=== PATIENT | female | born 1995 | race American Indian/Alaskan Native ===

== ENCOUNTER 2017-03-22 20:13 | Emergency (ER) | payer SELFPAY ==
[2017-03-22 20:54] LABS: Eosinophils % (Auto) 4.2 % (0.0-4.3); Hematocrit 35.5 % (30.3-42.9); Hemoglobin 11.5 gm/dl (10.1-14.3); Mean Corpuscular HGB Conc 33 % (30-34); Mean Corpuscular Hemoglobin 26 pg (28-32); Mean Corpuscular Volume 80 fl (79-97); Platelet Count 385 K/mm3 (140-440); Red Blood Count 4.43 M/mm3 (3.65-5.03); Red Cell Distribution Width 17.1 % (13.2-15.2); White Blood Count 8.6 K/mm3 (4.5-11.0)
[2017-03-22 21:04] LABS: Anion Gap 16 mmol/L; Blood Urea Nitrogen 8 mg/dL (7-17); Calcium 9.3 mg/dL (8.4-10.2); Carbon Dioxide 26 mmol/L (22-30); Chloride 100.4 mmol/L (98-107); Glucose 85 mg/dL (65-100); Potassium 3.6 mmol/L (3.6-5.0); Sodium 139 mmol/L (137-145)
--- NOTE | 2017-03-22 21:32 | XRay Report ---
FINAL REPORT EXAM: XR CHEST ROUTINE 2V HISTORY: SOB, Headache, HTN, preg test pend,send for report TECHNIQUE: Two view chest PA and lateral PRIORS: None. FINDINGS: Cardiac and mediastinal contours are unremarkable. No focal pulmonary infiltrate is identified. No pleural fluid collection seen. Pulmonary vasculature is unremarkable. IMPRESSION: Negative two-view chest
--- NOTE | 2017-03-22 22:03 | Cat Scan Report ---
FINAL REPORT EXAM: CT HEAD/BRAIN WO CON HISTORY: HTN, Nausea, SOB, Headache, preg test pending TECHNIQUE: CT imaging acquired through the head without intravenous contrast. Transaxial reformations are provided. PRIORS: None. FINDINGS: The ventricles, cisterns and sulci are normal. No intraparenchymal or extra-axial mass, hemorrhage, or mass effect. Olivares and white-matter differentiation is normal. Normal spherical shape of the globes. No significant abnormality within the imaged paranasal sinuses or mastoid air cells. No skull fracture. IMPRESSION: No acute intracranial abnormality.
[2017-03-22] MEDS ORDERED: NORVASC PO ONE (22:25)
--- NOTE | 2017-03-22 22:28 | Emergency Department Report ---
ED General Adult HPI - General Chief complaint: High BP Stated complaint: HIGH B/P Time Seen by Provider: 03/22/17 22:12 Source: patient Mode of arrival: Ambulatory Limitations: No Limitations - History of Present Illness Initial comments: Pt is a 21 yr old female with history of migraines who presents with intermittent LACY's and HTN. Pt reports for the past week she has had frontal and sinus headaches and when she checked her BP at school today it was >160. Pt reports she went home and took a nap and when she awoke she checked her BP again and SBP was 175. Pt reports she likely has high BP. Pt has a strong family history of HTN. Pt reports her 31 yr old sister has been on anti-HTN meds for years and may have had a stroke. Currently she reports her LACY has resolved. Otherwise no other complaints. No fevers, chills, dizziness, vision changes, vomiting, SOB, CP, abd pain, travel, or sick contacts. Severity scale (0 -10): 3 - Related Data Previous Rx's Medication Instructions Recorded Last Taken Type Ibuprofen [Motrin 600 MG tab] 600 mg PO Q8H PRN #30 tablet 01/26/15 Unknown Rx Butalbit/Acetamin/Caff/Codeine 1 cap PO Q6HR PRN #15 cap 08/28/15 Unknown Rx [Fioricet/Codeine 77-500-17-30] Ibuprofen [Motrin 800 MG tab] 800 mg PO Q8HR PRN #30 tablet 08/28/15 Unknown Rx metroNIDAZOLE [Flagyl TAB] 500 mg PO Q12HR #14 tab 08/28/15 Unknown Rx amLODIPine [Norvasc] 5 mg PO DAILY #30 tab 03/22/17 Unknown Rx Allergies Allergy/AdvReac Type Severity Reaction Status Date / Time No Known Allergies Allergy Unverified 01/26/15 12:11 ED Review of Systems ROS: Stated complaint: HIGH B/P Other details as noted in HPI Comment: All other systems reviewed and negative ED Past Medical Hx - Past Medical History Previous Medical History?: Yes Hx Headaches / Migraines: Yes - Surgical History Past Surgical History?: No - Social History Smoking Status: Current Every Day Smoker Substance Use Type: None - Medications Home Medications: Home Medications Medication Instructions Recorded Confirmed Last Taken Type Ibuprofen [Motrin 600 MG tab] 600 mg PO Q8H PRN #30 tablet 01/26/15 Unknown Rx Butalbit/Acetamin/Caff/Codeine 1 cap PO Q6HR PRN #15 cap 08/28/15 Unknown Rx [Fioricet/Codeine 13-590-52-30] Ibuprofen [Motrin 800 MG tab] 800 mg PO Q8HR PRN #30 tablet 08/28/15 Unknown Rx metroNIDAZOLE [Flagyl TAB] 500 mg PO Q12HR #14 tab 08/28/15 Unknown Rx amLODIPine [Norvasc] 5 mg PO DAILY #30 tab 03/22/17 Unknown Rx ED Physical Exam - General Limitations: No Limitations General appearance: alert, in no apparent distress - Head Head exam: Present: atraumatic, normocephalic - Eye Eye exam: Present: normal appearance, PERRL, EOMI Pupils: Present: normal accommodation - ENT ENT exam: Present: mucous membranes moist - Neck Neck exam: Present: normal inspection - Respiratory Respiratory exam: Present: normal lung sounds bilaterally. Absent: respiratory distress - Cardiovascular Cardiovascular Exam: Present: regular rate, normal rhythm. Absent: systolic murmur, diastolic murmur, rubs, gallop - GI/Abdominal GI/Abdominal exam: Present: soft, normal bowel sounds - Extremities Exam Extremities exam: Present: normal inspection - Back Exam Back exam: Present: normal inspection - Neurological Exam Neurological exam: Present: alert, oriented X3 - Psychiatric Psychiatric exam: Present: normal affect, normal mood - Skin Skin exam: Present: warm, dry, intact, normal color. Absent: rash ED Course Vital Signs 03/22/17 03/22/17 03/22/17 20:28 22:40 22:58 Temperature 98.7 F 98.7 F Pulse Rate 87 68 74 Respiratory 16 19 Rate Blood Pressure 144/90 Blood Pressure 160/109 138/87 [Right] O2 Sat by Pulse 100 100 Oximetry ED Medical Decision Making - Lab Data Result diagrams: 03/22/17 20:34 03/22/17 20:34 - EKG Data -: EKG Interpreted by Me - EKG Data 03/22/17 22:26 2025 EKG: NSR at 66 bpm, QTc:381 ns, normal axis no LVH, no ST changes, no STEMI - Medical Decision Making I discussed with the patient, given her strong family history and her BP readings at home she likely has essential HTN. I will give her norvasc 5mg here in the ED and give her a Rx for Norvasc 5mg daily, and she understands she needs to follow up with a primary provider for further evaluation and management of her BP. Critical care attestation.: If time is entered above; I have spent that time in minutes in the direct care of this critically ill patient, excluding procedure time. ED Disposition Clinical Impression: HTN (hypertension), Headache Disposition: DC- TO HOME OR SELFCARE Is pt being admited?: No Condition: Stable Instructions: Hypertension (ED), Acute Headache (ED) Prescriptions: amLODIPine [Norvasc] 5 mg PO DAILY #30 tab Referrals: [facility] [Outside] - 3-5 Days
[2017-03-22 23:23] LABS: Bilirubin,Urine NEG (Negative); Blood,Urine NEG (Negative); Ketones,Urine NEG (Negative); Leukocyte Esterase,Urine NEG (Negative); Mucus,Urine 1+ /HPF; Nitrite,Urine NEG (Negative); Protein,Urine <15 mg/dL mg/dL (Negative)
[2017-03-23 00:42] VITALS: BP 144/93
== END 2017-03-23 00:42 | disposition home or self-care (01) ==
LOC: ED 20:13
DX: I10 Essential (primary) hypertension (principal); F17.210 Nicotine dependence, cigarettes, uncomplicated; G43.909 Migraine, unspecified, not intractable, without status migrainosus
CPT/HCPCS: 36415; 70450; 71020; 80048; 81001; 84484; 84703; 85025; 93005; 93010; 99285